=== PATIENT | male | born 1990 | race Caucasian/White ===

== ENCOUNTER 2023-07-06 10:08 | Emergency (ER) | payer BC ==
[~2023-07-06] VITALS: Ht 190.5 cm; Wt 154.1 kg
[2023-07-06] MEDS ORDERED: IBUPROFEN600 M1 PO (10:16)
[2023-07-06 10:58] LABS: BASO # 0.09 K/mm3 (0.02-0.10); EOS # 0.21 K/mm3 (0.04-0.40); EOS % 2.5 % (0.0-4.0); HEMATOCRIT 49.9 % (42.0-52.0); HEMOGLOBIN 17.4 g/dL (13.5-18.0); MEAN CELL VOLUME 90 fl (78-100); MEAN CORPUSCULAR HEMOGLOBIN 31 pg (27-31); MEAN CORPUSCULAR HGB CONC 35 g/dL (33-37); MEAN PLATELET VOLUME 9.9 fl (7.4-10.4); MONO # 0.67 K/mm3 (0.20-0.80); NEU # 4.88 K/mm3 (1.40-6.50); PLATELET COUNT 282 K/mm3 (130-400); RED BLOOD COUNT 5.57 M/mm3 (4.20-5.60); RED CELL DISTRIBUTION WIDTH 12.1 % (11.5-14.5); WHITE BLOOD COUNT 8.4 K/mm3 (4.8-10.8)
[2023-07-06 11:11] LABS: SODIUM 139 mmol/L (136-145)
[2023-07-06 11:12] LABS: ALBUMIN 4.9 g/dL (3.5-5.0); CALCIUM 9.9 mg/dL (8.3-10.5)
[2023-07-06 11:14] LABS: TOTAL PROTEIN 8.1 g/dL (6.4-8.3)
[2023-07-06 11:15] LABS: GLUCOSE 130 mg/dL (75-110)
[2023-07-06 11:16] LABS: TOTAL BILIRUBIN 0.36 mg/dL (0.2-1.2)
[2023-07-06 11:17] LABS: CARBON DIOXIDE 16 mmol/L (22-29)
[2023-07-06 11:19] LABS: AST-SGOT 27 U/L (5-34)
[2023-07-06 11:22] LABS: ALT/SGPT 47 U/L (0-55)
[2023-07-06 11:28] LABS: TROPONIN-I < 0.030 ng/mL (0.00-0.033)
[2023-07-06 13:38] LABS: PH-URINE 5.5 (5.0 - 8.0); URINE APPEARANCE CLEAR (CLEAR); URINE BILIRUBIN NEGATIVE (NEGATIVE); URINE BLOOD NEGATIVE (NEGATIVE); URINE COLOR YELLOW (YELLOW); URINE GLUCOSE NEGATIVE (NEGATIVE); URINE KETONE NEGATIVE (NEGATIVE); URINE LEUKOCYTE ESTERASE NEGATIVE (NEGATIVE); URINE NITRATE NEGATIVE (NEGATIVE); URINE PROTEIN(semi-quant) 1+ (NEGATIVE)
[2023-07-06] MEDS ORDERED: HYDROCHLOROTHIA1 T14 PO (15:50)
[2023-07-06 16:06] VITALS: BP 167/116
== END 2023-07-06 16:05 | disposition home or self-care (01) ==
LOC: ED 10:08
PROVIDERS: Physician Assistant
DX: I10 Essential (primary) hypertension (principal); I16.0 Hypertensive urgency; M25.551 Pain in right hip
CPT/HCPCS: J0360; J2270